=== PATIENT | female | born 1995 | race Caucasian/White ===

== ENCOUNTER 2025-04-15 15:05 | Emergency (ER) | payer OTHER ==
[~2025-04-15] VITALS: Ht 172.7 cm; Wt 90.0 kg
[2025-04-15 15:07] VITALS: BP 112/87; TEMP 36.8
[2025-04-15] MEDS ORDERED: P20 MT (15:39)
[2025-04-15] MEDS ORDERED: ALBU90AE INH (15:39)
[2025-04-15] MEDS: PREDNISONE 20MG TABLET PO ONE (16:03)
[2025-04-15] MEDS: ALBUTEROL (0.083%) 2.5MG/3ML NEB HHN ONE (16:11)
[2025-04-15 16:12] VITALS: PULSE 80; RESP 22; O2SAT 98
[2025-04-15] MEDS: IPRATROPIUM BROMIDE (0.02%) 0.5MG/2.5ML NEB HHN ONE (16:12)
== END 2025-04-15 16:44 | disposition home or self-care (01) ==
LOC: ER 15:05
DX: J45.901 Unspecified asthma with (acute) exacerbation (principal); Z76.0 Encounter for issue of repeat prescription
CPT/HCPCS: 94640; 99283; J7512; Z7610 ×4; 94070